=== PATIENT | female | born 1950 | race Caucasian/White ===

== ENCOUNTER 2016-11-25 20:43 | Outpatient (CLI) | payer MEDICARE, BC ==
[~2016-11-25] VITALS: Ht 170.2 cm; Wt 95.3 kg
--- NOTE | ~2016-11-25 | HEMODYNAMI ---
PATIENT:NATHANIEL MONCADA MEDICAL RECORD: [id number] : 50 LOCATION:[facility] D.2 ADMISSION DATE: 11/25/16 Generatedon:11/26/201610:15 Patient name: NATHANIEL MONCADA Patient #: [id number] SSN: D OB: 1950 Date of study: 11/26/2016 Page: Of Hemodynamic Procedure Report Patient Data Patient Demographics Procedure consent was obtained First Name: NATHANIEL Gender: Female Last Name: CORAL : 1950 Patient #: [id number] Age: 66 year(s) Race: Unknown Additional ID: [id number] Contact details [address]: [address] [place] [address] State: [place] City: [place] Zip code: [address] Admission Admission Data Admission Date: 11/25/2016 Admission Time: 20:43 Room #: D.2112 Procedure Procedure Types Cath Procedure Diagnostic Procedure [facility] w/Coronaries PCI Procedure Coronary Stent Initial Miscellaneous Procedures Moderate Sedation up to 15 minutes Procedure Description Procedure Date Procedure Date: 11/26/2016 Procedure Start Time: 10:00 Procedure End Time: 10:14 Procedure Staff Name Function Enrique Stephen MD Performing Physician Christian Baumann RT Scrub Hanna Beauchamp RN Nurse Chase Dempsey RT Monitor Procedure Data Cath Procedure Fluoroscopy Diagnostic fluoroscopy Total fluoroscopy Time: 3.2 time: 3.2 min min Diagnostic fluoroscopy Total fluoroscopy dose: 614 dose: 614 mGy mGy Contrast Material Contrast Material Type Amount (ml) Isovue 300 87 Entry Location Entry Primary Successful Side Size Upsize Upsize Entry Closure Bunch ccessful Closure Location (Fr) 1 (Fr) 2 (Fr) Remarks Device Remarks Radial Right 6 Fr Mechanical artery Short Compression Estimated blood loss: 10 ml Diagnostic catheters Device Type Used For End Catheter Placement Terumo 5Fr Crum Lynne 110cm Procedure catheter Procedure Complications No complications Procedure Medications Medication Administration Route Dosage Oxygen NC 2 l/min Heparin Flush Bag added to field 2 bags (1000units/500ml NS) Lidocaine 2% added to field 20 Radial Cocktail added to field 1 syringe (Verapomil 2mg/Nitro 400mcg/Heparin 1500units) Versed I.V. 1 mg Fentanyl I.V. 50 mcg Radial Cocktail I.A. 1 syringe (Verapomil 2mg/Nitro 400mcg/Heparin 1500units) Versed I.V. 1 mg Fentanyl I.V. 50 mcg Heparin Bolus I.V. 4000 units Versed I.V. 1 mg Fentanyl I.V. 50 mcg Versed I.V. 1 mg Plavix P.O. 75 mg Hemodynamics Rest Heart Rate: 65 (bpm) Pressure Samples Time Site Value (mmHg) Purpose Heart Use Rate(bpm) 10:01 LV 72/-31,-2 Snapshot 71 10:02 LV 103/43,38 Snapshot 71 Snapshots Pre Cath Intra NCS Post Cath Vital Signs Time Heart Resp SPO2 NIBP (mmHg) Rhythm Pain Sedation Rate (ipm) (%) Status Level (bpm) 9:23:45 68 20 100 156/85(133) NSR 0 (11) 10(A) , No pain 9:28:09 65 19 100 141/78(122) NSR 0 (11) 10(A) , No pain 9:32:34 59 16 96 144/76(103) NSR 0 (11) 10(A) , No pain 9:36:56 60 15 97 135/84(100) NSR 0 (11) 10(A) , No pain 9:41:18 61 16 95 129/75(108) NSR 0 (11) 10(A) , No pain 9:45:38 59 19 95 133/76(119) NSR 0 (11) 10(A) , No pain 9:49:58 62 16 95 151/82(125) NSR 0 (11) 10(A) , No pain 9:54:28 62 16 95 161/72(126) NSR 0 (11) 10(A) , No pain 9:58:51 60 16 95 139/74(113) NSR 0 (11) 10(A) , No pain 10:03:11 69 16 95 130/65(96) NSR 0 (11) 10(A) , No pain 10:07:29 68 16 95 135/68(100) NSR 0 (11) 10(A) , No pain 10:11:12 76 16 96 124/69(102) NSR 0 (11) 10(A) , No pain Medications Time Medication Route Dose Verified Delivered Reason Note s Effectiveness by by 9:25:39 Oxygen NC 2 l/min Enrique Hanna Per physician Zafar Beauchamp RN 9:25:47 Heparin Flush added 2 bags Enrique Nunez used for Bag to Zafar Stephen MD procedure (1000units/500ml field NS) 9:25:54 Lidocaine 2% added 20ml Enrique Enrique used for to vial Zafar Stephen MD procedure field 9:26:10 Radial Cocktail added 1 Enrique Enrique used for (Verapomil to syringe Zafar Stephen MD procedure 2mg/Nitro field 400mcg/Heparin 1500units) 9:58:50 Versed I.V. 1 mg Enrique Hanna for sedation Zafar Beauchamp RN 9:58:56 Fentanyl I.V. 50 mcg Enrique Hanna for sedation Zafar Beauchamp RN 10:00:10 Versed I.V. 1 mg Enrique Hanna for sedation Zafar Beauchamp RN 10:00:19 Fentanyl I.V. 50 mcg Enrique Hanna for sedation Zafar Beauchamp RN 10:01:09 Radial Cocktail I.A. 1 Enrique Enrique for (Verapomil syringe Zafar Stephen MD vasodilation 2mg/Nitro 400mcg/Heparin 1500units) 10:02:20 Versed I.V. 1 mg Enrique Hanna for sedation Zafar Beauchamp RN 10:02:24 Fentanyl I.V. 50 mcg Enrique Hanna for sedation Zafar Beauchamp RN 10:04:23 Heparin Bolus I.V. 4000 Enrique Hanna for dose units Zafar Beauchamp RN anticoagulation verified wtih dr stephen 10:04:32 Versed I.V. 1 mg Enrique Hanna for sedation Zafar Beauchamp RN 10:09:50 Plavix P.O. 75 mg Enrique Hanna for Zafar Beauchamp RN antiplatelet therapy Procedure Log Time Note 9:01:38 ACC Patient presents with Stable Angina CCS Anginal Class 2--Slight limitation of ordinary activity. 9:01:41 Diagnostic Cath status Elective 9:01:45 Chase Dempsey RT(R) sent for patient. Start room use. 9::46 Time tracking: Regular hours 9:01:55 Plan of Care:Hemodynamics will remain stable., Cardiac rhythm will remain stable., Comfort level will be maintained., Respiratory function will remain adequate., Patient/ family verbilizes understanding of procedure., Procedure tolerated without complication., Recovers from procedure without complications.. 9:19:36 Patient received from PCU to CCL 2 Alert and oriented. Tansferred to table in Supine position. 9:19:37 Warm blankets applied, and richard hugger turned on for patient comfort. 9::37 Correct patient and procedure confirmed by team. 9::38 Signed procedure consent form obtained from patient. 9::39 ECG and BP/O2 sat monitors applied to patient. 9:22:24 Vital chart was started 9:25:39 Oxygen 2 l/min NC was administered by Hanna Beauchamp RN; Per physician; 9:25:47 Heparin Flush Bag (1000units/500ml NS) 2 bags added to field was administered by Enrique Stephen MD; used for procedure; 9:25:54 Lidocaine 2% 20ml vial added to field was administered by Enrique Stephen MD; used for procedure; 9:26:10 Radial Cocktail (Verapomil 2mg/Nitro 400mcg/Heparin 1500units) 1 syringe added to field was administered by Enrique Stephen MD; used for procedure; 9:28:04 Baseline sample Acquired. 9:28:14 Rhythm: sinus rhythm 9:28:16 Full Disclosure recording started 9::37 H&P Date Dictated: 11/25/2016 Within 30 days and on chart., H&P Addendum completed by physician on day of procedure. (MUST COMPLETE FOR ALL OUTPATIENTS). 9:28:38 Pre-procedure instructions explained to patient. 9:28:39 Pre-op teaching completed and patient verbalized understanding. 9::40 Family in waiting room. 9::42 Patient NPO since Midnight. 9::46 Is the patient allergic to Iodine/contrast media? No. 9:29:05 Is patient on blood thinner?Yes 9:29:09 ACC The patient was administered the following blood thiners within the last 24 hours: ACCPlavix 9:29:12 Patient diabetic? No. 9:29:14 Patient not . Patient is over age 55. 9:29:17 Previous problem with sedation/anesthesia? No ? 9:29:20 Snore? Yes 9:29:21 Sleep apnea? No 9:29:22 Deviated septum? No 9:29:23 Opens mouth fully? Yes 9:29:24 Sticks out tongue? Yes 9:29:25 Airway obstruction? No ? 9:29:29 Dentures? No ? 9:29:32 Pre procedure: right dorsailis pedis pulse 1+ Palpable, but thready & weak; easily obliterated 9:29:35 Modified Anastacio's test Ulnar < 7 seconds 9:29:41 Patient pain scale 0/10 ?. 9:29:53 IV patent on arrival in left forearm with 0.9% NaCl at [facility]. 9:29:56 Lab results completed and on chart. 9:30:02 Right Radial & Right Groin area was prepped with chlora-prep and draped in sterile fashion 9:30:08 Alarms reviewed by R. N. 9:30:08 Sharps counted by scrub and verified by R.N. 9:39:06 Zero performed for pressure channel P1 9:39:09 Zero performed for pressure channel P1 9:39:11 Zero performed for pressure channel P1 9:58:08 --------ALL STOP TIME OUT------ 9:58:08 Final Timeout: patient, procedure, and site verified with staff and physician. All members of the team are in agreement. 9:58:11 Right Radial & Right Groin site verified by team. 9:58:14 Physical assessment completed. ASA score P 2 - A patient with mild systemic disease as per Enrique Stephen MD. 9:58:17 Sedation plan: IV Moderate Sedation Versed, Fentanyl 9:58:50 Versed 1 mg I.V. was administered by Hanna Beauchamp RN; for sedation; 9:58:56 Fentanyl 50 mcg I.V. was administered by Hanna Beauchamp RN; for sedation; 9:59:52 Use device set Radial Dx 9:59:54 Tegaderm 4 x 4 opened to sterile field. 9:59:55 Acist Hand Control opened to sterile field. 9:59:55 Acist Manifold opened to sterile field. 9:59:57 Acist Syringe opened to sterile field. 9:59:57 Medline Cath Pack opened to sterile field. 9:59:58 Bag Decanter opened to sterile field. 9:59:58 Terumo 6Fr Slender Glidesheath opened to sterile field. 9:59:58 St Geovany 260cm J .035 wire opened to sterile field. 9:59:59 MBrace Wrist Support opened to sterile field. 10:00:01 Procedure started. 10:00:08 Local anesthetic to right radial artery with Lidocaine 2% by Enrique Stephen MD.INITIAL ACCESS ONLY 10:00:10 Versed 1 mg I.V. was administered by Hanna Beauchamp RN; for sedation; 10:00:19 Fentanyl 50 mcg I.V. was administered by Hanna Beauchamp RN; for sedation; 10:00:31 A 6 Fr Short sheath was inserted into the Right Radial artery 10:01:09 Radial Cocktail (Verapomil 2mg/Nitro 400mcg/Heparin 1500units) 1 syringe I.A. was administered by Enrique Stephen MD; for vasodilation; 10:01:11 A Terumo 5Fr Crum Lynne 110cm catheter was advanced over the wire and used for Procedure. 10:01:58 LV angiography performed. 10:01:59 LV gram done using CRUZ 10:02:04 EF : 60 % 10:02:14 Injector settings: Ml/sec: 7, Volume: 15, 10:02:20 Versed 1 mg I.V. was administered by Hanna Beauchamp RN; for sedation; 10:02:24 Fentanyl 50 mcg I.V. was administered by Hanna Beauchamp RN; for sedation; 10:02:24 LCA angiography performed. 10:02:35 Merit BasixCompak Inflation Kit opened to sterile field. 10:02:35 Zhong Whisper J 300cm 0.014 guide wire opened to sterile field. 10:03:28 RCA angiography performed. 10:03:36 Cordis 6FR XBLAD 3.5 guide catheter opened to sterile field. 10:03:40 Catheter exchanged over wire. 10:04:23 Heparin Bolus 4000 units I.V. was administered by Hanna Beauchamp RN; for anticoagulation; dose verified wtih dr stephen 10:04:32 Versed 1 mg I.V. was administered by Hanna Beauchamp RN; for sedation; 10:04:48 6 Fr XBLAD 3.5 guide catheter was inserted over the wire 10:04:54 ACC PCI Site: mLAD has 80% stenosis. 10:04:56 ACC Pre-intervention CHERYL Flow is 3. 10:06:30 Guide Catheter removed. unable to cannulate vessel. 10:06:44 Medtronic Launcher 6Fr EBU 3.0 guide catheter opened to sterile field. 10:06:59 6 Fr EBU 3 guide catheter was inserted over the wire 10:07:38 Whisper wire advanced. 10:07:46 Terumo TR Band Standard opened to sterile field. 10:08:11 Wire advanced across lesion. 10:08:36 Inflation Number: 1 A Hoolux Medicaltronic Integrity 2.5 x 14 stent was prepped and advanced across the Mid LAD. The stent was deployed at 11 SAMANTHA for 0:10 (min:sec). 10:08:58 ACC Post-intervention CHERYL Flow is 3. 10:08:59 Stent catheter was removed intact over wire. 10:08:59 Wire removed. 10:09:00 Guide catheter removed. 10:09:16 Sheath removed intact; hemostasis achieved with Mechanical Compression to the Right Radial artery. 10:09:19 Procedure ended.(Physican Out) 10:09:27 Fluoroscopy time 03.20 minutes. 10:09:33 Fluoroscopy dose: 614 mGy 10:09:33 Flurop Dose total: 614 10:09:47 Contrast amount:Isovue 300 87ml. 10:09:50 Plavix 75 mg P.O. was administered by Hanna Beauchamp RN; for antiplatelet therapy; 10:09:51 Sharps counted by scrub and verified by R.N. 10:09:53 TR band inflated with 10cc of air. 10:09:55 Insertion/operative site no bleeding no hematoma. 10:09:57 Post Procedure Pulses reassessed and unchanged 10:09:59 Post-procedure physical assessment completed. ASA score P 2 - A patient with mild systemic disease as per Enrique Stephen MD. 10:10:01 Post procedure rhythm: unchanged. 10:10:04 Estimated blood loss: 10 ml 10:10:05 Post procedure instruction explained to patient.Patient verbalizes understanding. 10:10:06 Patient needs reinforcement of post procedure teaching. 10:10:18 Procedure type changed to Cath procedure, Diagnostic procedure, LHC, LHC w/Coronaries, PCI procedure, Coronary Stent Initial, Miscellaneous Procedures, Moderate Sedation up to 15 minutes 10:10:20 Procedure and supply charges have been captured, reviewed, submitted and are correct. 10:10:23 Procedure Complication : No complications 10:14:23 Vital chart was stopped 10:14:23 See physician's report for complete and final results. 10:14:25 Report given to PCU. 10:14:28 Patient transfered to PCU with Bed. 10:14:29 Procedure ended. 10:14:29 Full Disclosure recording stopped 10:14:36 End room use (Document Last) Intervention Summary Intervention Notes Time ActionType Lesion and Equipment Action# Pressure Duration Attributes Used 10:08:36 Place stent Mid LAD Medtronic 1 11 00:10 Integrity 2.5 x 14 stent Device Usage Item Name Manufacture Quantity Catalog Hospital Part Current Minimal Lot# / Number Charge Number Stock Stock Serial# Code [facility] 4 1 [id number] 5 x 4 Acist Hand Acist 1 99782 240641 709546 607850 5 Control Medical Systems Inc Acist Acist 1 68848 202728 210203 180779 5 Manifold Medical Systems Inc Acist Acist 1 59487 791531 019796 518380 20 Syringe Medical Systems Inc Medline Cardinal 1 [id number] 550911 76449 006460 5 Cath Pack Health Bag Microtek 1 2001S 128820 99538 239344 5 DecSounday [employer] Inc. Terumo 6Fr Terumo 1 [id number] 739339 856221 061545 [address] Geovany 1 486511 290428 410090 158758 30 260cm J .035 wire MBrace Advanced 1 140-0250-00 438664 12118 403066 5 Wrist Vascular Support Dynamics Terumo 5Fr Terumo 1 40-5627 847493 365565 951871 5 Crum Lynne 110cm catheter Merit Merit 1 [id number] 869809 774515 199849 15 Onlineprinters Medical Inflation Kit Zhong Zhong 1 [id number] 923607 197770 604386 5 Whisper J Vascular 300cm 0.014 guide wire Cordis 6FR Cardinal 1 [id number] 103080 886975 824664 10 XBLAD 3.5 Health guide catheter Medtronic Medtronic 1 [id number] 993422 90215 673597 0 Launcher 6Fr EBU 3.0 guide catheter Terumo TR Terumo 1 [id number] 918799 410529 058604 40 Band Standard Medtronic Medtronic 1 [id number] 771908 110028 2 [id number] Integrity 2.5 x 14 stent Signature Audit [place] Stage Time Signature Unsigned Intra-Procedure 11/26/2016 Christian Baumann 10:14:57 AM RT(R) Signatures Monitor : Chase Dempsey RT Signature : Date : Time : [id number] [place] [address]
[2016-11-25 15:49] LABS: BASOPHILS 0.2 % (0-2); EOSINOPHILS 1.3 % (0-7); HEMATOCRIT 41.6 % (36.0-48.0); HEMOGLOBIN 14.3 g/dL (12-16); IMMATURE GRANULOCYTES 0.2 % (0-5); LYMPHOCYTES 27.1 % (15-50); MCH 30.5 pg (26.0-34.0); MCHC 34.4 g/dL (31.0-37.0); MCV 88.7 fL (80.0-100.0); MEAN PLATELET VOLUME 11.3 fL (7.4-10.4); MONOCYTES 9.5 % (2-11); NEUTROPHILS 61.7 % (40-80); PLATELET COUNT 166 10x3/uL (130-400); RBC 4.69 10x6/uL (4.00-5.40); RDW 12.8 % (11.5-14.5); WBC 5.4 10x3/uL (4.8-10.8)
[2016-11-25 16:08] LABS: ALKALINE PHOSPHATASE 90 U/L (46-116); ALT (SGPT) 50 U/L (10-68); BILIRUBIN - TOTAL 0.27 mg/dL (0.2-1.3); CALC OSMOLALITY 278 mosm/kg (275-300); CALCIUM 9.4 mg/dL (8.5-10.1); CARBON DIOXIDE 30.2 mmol/L (21.0-32.0); CHLORIDE - SERUM 101 mmol/L (98-107); CREATININE - SERUM 0.9 mg/dL (0.6-1.3); GLUCOSE 107 mg/dL (74-106); PROTEIN - SERUM 7.5 g/dL (6.4-8.2); SODIUM 138 mmol/L (136-145); UREA NITROGEN 22 mg/dL (7-18); eGFR NON AFRICAN AMERICAN 66 mL/min (90-120)
[2016-11-25 16:12] LABS: CREATINE KINASE 83 UL (21-215)
[2016-11-25 16:24] LABS: TROPONIN-I < 0.017 ng/mL (0.000-0.060)
[2016-11-25 20:00] VITALS: BP 142/74
[2016-11-25] MEDS ORDERED: LISINOPRIL-HCTZ1 T13 PO (20:44)
[2016-11-25] MEDS ORDERED: LEVOTHYROXINE50 MCG PO (20:44)
[2016-11-25] MEDS ORDERED: ZOCOR40 MG PO (20:45)
[2016-11-25] MEDS ORDERED: BAYER CHEWABLE81 MG PO (20:47)
--- NOTE | 2016-11-25 20:50 | NUR ---
REC FROM ER VIA WC. ALERT/ORIENTED X 4. AMBULATED TO BED WITH STEADY GAIT. DENIES PAIN. IV IN LEFT HAND INTACT SL. ORIENTED TO ROOM AND CALL LIGHT.
--- NOTE | 2016-11-25 21:30 | NUR ---
SIGNED CONSENT FOR [employer] TOMORROW WITH DR PLAZA.
[2016-11-25 22:42] VITALS: BP 142/74; BMI 32.9
[2016-11-26] VITALS: BP 138/64
--- NOTE | 2016-11-26 02:17 | NUR ---
RESTING WITH EYES CLOSED. RR 18 EVEN U/L. NO S/S OF PAIN OR DISCOMFORT. BED IS LOW WITH SR UP X2. CALL LIGHT IN REACH.
[2016-11-26 04:00] VITALS: BP 139/63
[2016-11-26 08:10] VITALS: BP 136/82
--- NOTE | 2016-11-26 08:59 | NUR ---
CATH CALLED TO PRE-OP PT. PRE-OP MEDS GIVEN AND TEACHING PROVIDED. ASSISTED PT INTO BED AND SHE IS AWAITING CATH TEAM. NO FURTHER NEEDS AT THIS TIME. WILL CPOC.
--- NOTE | 2016-11-26 09:09 | NUR ---
CATH TEAM IN ROOM AND READY TO TAKE PATIENT. NO FURTHER NEEDS.
--- NOTE | 2016-11-26 10:13 | HP ---
PATIENT: NATHANIEL MONCADA MEDICAL RECORD: [id number] ACCOUNT: [id number] LOCATION:[address] : 50 ADMISSION DATE: 11/25/16 HISTORY AND PHYSICAL EXAMINATION ADMITTING DIAGNOSES: 1. Chest pain compatible with angina. 2. Abnormal nuclear stress test. 3. Hypertension. 4. Hyperlipidemia. 5. Family history of coronary artery disease. HISTORY OF PRESENT ILLNESS: Mrs. Moncada has been having increasing episodes of chest pain or chest discomfort. This actually started in April. She underwent stress testing, this was mildly abnormal. She was treated medically. She did well for a number of months; however, the past week, she has had multiple episodes of chest discomfort with any minimal exertion, even vacuuming brings on profuse diaphoresis and chest discomfort. It is a classic, dull, aching fullness in the anterior chest. Her EKG is with no acute changes. Troponin is normal. PHYSICAL EXAMINATION: GENERAL APPEARANCE: Well-nourished, well-developed, appears stated age. Level of distress, comfortable. PSYCHIATRIC: Mental status, alert, normal affect. Orientation, oriented to time, place and person. EYES: Lids and conjunctiva, noninjected. No discharge, no pallor. ENT: Lips, teeth, gums, normal dentition. Oropharynx, no cyanosis, no pallor. NECK: Carotid arteries, bilateral normal upstroke, no bruits, no thrills. JUGULAR VEINS: No jugular venous pressure or distention. CERVICAL LYMPH NODES: Nontender, nonenlarged. THYROID: Not enlarged. Nontender. No nodules. LUNGS: Respiratory effort, unlabored. CHEST: Normal curvature. No thoracic deformity. No chest wall tenderness. Percussion, resonant. Auscultation, clear. No wheezes, no rales, no rhonchi. CARDIOVASCULAR: Precordial exam, nondisplaced. No heaves or pericardial thrills. Rate and rhythm, regular. Heart sounds, normal S1, normal S2. No S3, no gallop, no rub. Systolic murmur, not heard. Diastolic murmur, not heard. EXTREMITIES: No cyanosis, no edema. Peripheral pulses, full and equal in all extremities, except as noted. No bruits appreciated. ABDOMEN: Soft, nondistended. Normal aorta. No bruit. Nontender. No masses. Liver, nontender, no hepatomegaly. Spleen, nontender, no splenomegaly. MUSCULOSKELETAL: No joint tenderness. No joint swelling. No erythema. NEUROLOGICAL: Normal gait, normal strength, normal tone. SKIN: Warm and dry. OVERALL IMPRESSION: Chest pain compatible with angina in markedly escalating fashion. Most likely, she has hemodynamically significant coronary artery disease. We will proceed with coronary angiography. Further care depends upon findings of the angiography. TRANSINT:[id number] Voice Confirmation ID: [id number] DOCUMENT ID: [id number] HISTORY AND PHYSICAL [id number] NATHANIEL MONCADA JEFFREY MD at 1013 CC: [id number] DICTATION DATE: 11/25/16 1711 TIPPLE OPERATOR: 11/25/16 1811 ADM IN [id number] [place] [address]
--- NOTE | 2016-11-26 10:47 | NUR ---
PT BACK FROM MANAGER HIV AWAKE AND ALERT. VSS AND BEING MONITERED Q15MIN PER POST PROCEDURE PROTOCOL. INITIATED IV FLUIDS @100ML/HR VIA L.HAND PIV ACCESS. TR BAND IN PLACE TO R.WRIST WITH 9CC OF AIR. CDI NO S/S OF BLEEDING OR HEMATOMA NOTED. PERIPHERAL PULSES INTACT. TEACHING PROVIDED AND UPDATE GIVEN ABOUT PROCEDURE AND WHAT WAS DONE. PT VERBALIZED UNDERSTANDING AND IS RESTING QUIETLY IN BED, DENIES ANY CURRENT PAIN OR NEEDS. WILL CTM.
[2016-11-26 11:06] VITALS: Ht 170.2 cm; Wt 95.3 kg
[2016-11-26] MEDS ORDERED: PLAVIX75 MG PO (11:16)
[2016-11-26] MEDS ORDERED: CIPRO500 MG PO (11:16)
--- NOTE | 2016-11-26 12:19 | NUR ---
ASSISTED PT TO BR. SHE VOIDED WITHOUT ANY DIFFICULTIES. R.WRIST TR BAND STILL IN PLACE AND NO S/S OF BLEEDING NOTED. PT SITTING UP IN BED EATING LUNCH. PERIPHERAL PULSES INTACT, VSS, DENIES ANY PAIN OR CURRENT NEEDS AT THIS TIME. WILL CPOC.
--- NOTE | 2016-11-26 13:26 | NUR ---
REMOVED HALF OF AIR FROM PTS R.WRIST TR BAND. PT STARTED WITH 9CC, REMOVED 4CC AND NO BLEEDING OCCURED. WILL REMOVED HALF MORE PER PROTOCOL IN 30 MINS AND CTM.
--- NOTE | 2016-11-26 13:44 | NUR ---
DISCHARGE TEACHING PROVIDED AND PAPERS SIGNED. PT DENIES ANY QUESTIONS OR CONCERNS AND WAS GIVEN SCRIPTS FOR THE TWO NEW MEDICATIONS. PT STILL HAS R.WRIST TR BAND IN PLACE AND HAS NO S/S OF BLEEDING OR HEMATOMA. WILL WAIT UNTIL TIME IS COMPLETELY UP BEFORE LEAVING UNIT. DENIES ANY FURTHER NEEDS OR QUESTIONS AT THIS TIME. WILL CTM.
--- NOTE | 2016-11-26 14:43 | NUR ---
RELEASED LAST HALF OF AIR AND INCISION STARTED OOZING. PLACE 8CC OF AIR BACK IN. WILL CONTINUE TO MONITOR.
--- NOTE | 2016-11-26 15:17 | NUR ---
RELEASED 8CC OF AIR FROM THE TR BAND. PLACED 2X2 AND OPSITE DRESSING. WILL CONTINUE TO MONITOR.
--- NOTE | 2016-11-26 16:13 | NUR ---
PT D/C HOME WITH . IV IN LEFT HAND D/C. CATH TIP INTACT. PT TOLERATED WELL. PT LEFT FLOOR VIA WHEELCHAIR BY HOSPITAL STAFF. WILL.D/C
--- NOTE | 2016-11-28 16:36 | DS ---
PATIENT:NATHANIEL MONCADA :50 MEDICAL RECORD: [id number] DISCHARGE SUMMARY ADMISSION DATE: 11/25/16 DISCHARGE DATE: 11/26/16 DISCHARGE DIAGNOSES: 1. Angina. 2. Coronary artery disease. 3. Hypertension. 4. Hyperlipidemia. HOSPITAL COURSE: Mrs. Moncada presents with anginal symptomatology, found to have significant disease of the LAD, underwent successful PTCA stent of the LAD, had an uneventful postop course. She was discharged home with the addition of aspirin and Plavix to her medical regimen. Will follow up with [facility] in 1 month. TRANSINT:[id number] Voice Confirmation ID: [id number] DOCUMENT ID: [id number] RAMOS PLAZA MD at 1636 CC: [id number] DICTATION DATE: 11/26/16 1016 PROCESS CONTROL SUPERVISOR: 11/27/16 0514 DEP CLI 11/26/16 [id number] [place] [address]
--- NOTE | 2016-11-28 16:36 | OP ---
PATIENT NAME: NATHANIEL MONCADA MEDICAL RECORD: [id number] :50 LOCATION:[facility] ADMISSION DATE: SURGEON: RAMOS PLAZA MD DATE OF OPERATION: 11/26/2016 PROCEDURES: 1. PTCA stent LAD. 2. Left heart catheterization. 3. Selective coronary angiography. 4. Left ventriculogram. INDICATION: Angina and coronary artery disease. PROCEDURE: After informed consent was obtained and after detailed explanation of risks, benefits, as well as alternative therapies, the patient elected to proceed with angiogram and angioplasty. The right radial area was prepped and draped in normal sterile fashion. Right radial artery was cannulated via modified Seldinger technique with placement of 6-Slovak sheath. All catheters exchanged through this sheath. FINDINGS: The left ventriculogram was performed in the standard 30-degree CRUZ view reveals good cardiac wall motion throughout all segments. Overall ejection fraction is 60%. SELECTIVE CORONARY ANGIOGRAPHY: 1. Left main showed no significant angiographic disease. 2. Left anterior descending has 80% stenosis that is hazy in the mid vessel. 3. Left circumflex has moderate irregularities, but no flow-limiting stenosis. 4. Right coronary has moderate irregularities, but no flow-limiting stenosis. PTCA STENT OF THE LAD: The stent used was a 2.5 x 14 mm Integrity. Result was 0% residual stenosis. OVERALL IMPRESSION: Successful percutaneous transluminal coronary angioplasty stent of the left anterior descending going from 80% initial stenosis to 0% residual. TRANSINT:[id number] Voice Confirmation ID: [id number] DOCUMENT ID: [id number] RAMOS PLAZA MD at 1636 CC: [id number] DICTATION DATE: 11/26/16 1015 TONG HOOKER: 11/26/16 1800 DEP CLI 11/26/16 [place] [address]
== END 2016-11-26 16:15 | disposition home or self-care (01) ==
LOC: OBSVTIME → D.OPS 20:43 → D.ER 20:43 → OBSVTIME 20:43 → D.M2 20:43 → EDSTATUS 11-26 07:42 → D.OPS 11-26 16:15 → D.M2 11-26 16:15
PROVIDERS: Emergency Medicine
DX: I25.119 Atherosclerotic heart disease of native coronary artery with unspecified angina pectoris (principal); R94.39 Abnormal result of other cardiovascular function study; I10 Essential (primary) hypertension; E78.5 Hyperlipidemia, unspecified; Z82.49 Family history of ischemic heart disease and other diseases of the circulatory system; Z01.812 Encounter for preprocedural laboratory examination

== ENCOUNTER → 2017-03-10 17:03 | Outpatient (CLI) | payer MEDICARE, BC ==
[2016-11-26 11:06] VITALS: BMI 32.9
[~2017-03-10 17:03] MED LIST: BAYER CHEWABLE81 MG PO; CIPRO500 MG PO; LEVOTHYROXINE50 MCG PO; LISINOPRIL-HCTZ1 T13 PO; PLAVIX75 MG PO; ZOCOR40 MG PO
== END | disposition home or self-care (01) ==
LOC: D.MAMMO 13:45
DX: Z12.31 Encounter for screening mammogram for malignant neoplasm of breast (principal)

== ENCOUNTER 2018-05-10 19:00 | Outpatient (CLI) | payer MEDICARE, BC ==
[2016-11-26 11:06] VITALS: BMI 32.9
== END 2018-05-10 23:59 | disposition home or self-care (01) ==
LOC: D.MAMMO 19:00
DX: Z12.31 Encounter for screening mammogram for malignant neoplasm of breast (principal)

== ENCOUNTER 2019-05-11 09:00 | Outpatient (CLI) | payer MEDICARE, BC ==
[2016-11-26 11:06] VITALS: BMI 32.9
== END 2019-05-11 10:00 | disposition home or self-care (01) ==
LOC: D.MAMMO 09:00
PROVIDERS: ATTEND Family Medicine
DX: Z12.31 Encounter for screening mammogram for malignant neoplasm of breast (principal)

== ENCOUNTER 2019-07-01 02:15 | Observation (INO) | payer MEDICARE, BC ==
[~2019-07-01] VITALS: Ht 170.2 cm; Wt 99.1 kg
--- NOTE | ~2019-07-01 | EC ---
PATIENT:NATHANIEL MONCADA DATE OF SERVICE: 07/01/19 SEX: F MEDICAL RECORD: [id number] DATE OF : 50 LOCATION:D.M2 D.211 AGE OF PATIENT: 69 ADMISSION DATE: 07/01/19 REFERRING PHYSICIAN: INTERPRETING PHYSICIAN: RAMOS PLAZA MD ECHOCARDIOGRAM REPORT ECHO CHARGES 4 ECHO COMPLETE Date: 07/01/19 CLINICAL DIAGNOSIS: AFIB ECHOCARDIOGRAPHIC MEASUREMENTS (adult normal given) AC root (d.<3.7cm) 2.5 cm LV Septum d (<1.2 cm> 1.1 cm Valve Excursion 1.7 cm LV Septum (systole) 1.2 cm Left Atria (s.<4.0cm> 3.8 cm LVPW d(<1.2cm) 1.2 cm RV (d.<2.3cm) 3.5 cm LVPW (sytole) 1.3 cm LV diastole(<5.6CM) 5.0 cm MV E-F(>70mm/sec) cm LV systole 4.0 cm LVOT Diameter 2.1 cm MV exc.(>10mm) cm Est.ejection fraction (50-75%) % DOPPLER: LVIT cm/sec A 43 cm/sec E 55 cm/sec LA cm/sec RVSP 26.6 mmHg LVOT 89 cm/sec AOP1/2T m/s Asc. Ao 128 cm/sec RVOT 68 cm/sec RA cm/sec PA 100 cm/sec AV Gradient Peak 6.5 mmHg AV Mean 3.9 mmHg AV Area 2.5 cm MV Gradient Peak 4.0 mmHg MV Mean 1.2 mmHg MV Area cm COMMENTS: Biophysics Professor: Jessica CHILDRESS Electronic Communications Technician: 2 Dr. Gonzalez TAPE# PACS Pericardial Effusion N DATE OF SERVICE: ECHOCARDIOGRAM FINDINGS: 1. Left ventricular chamber size is within normal limits. Left ventricular systolic function is normal. Overall ejection fraction estimated at 55%. 2. Left atrium, right atrium, right ventricular chamber sizes are within normal limits. 3. Valvular structures have normal structure and motion. ECHOCARDIOGRAM REPORT [id number] NATHANIEL MONCADA 4. Doppler interrogation reveals mild aortic insufficiency, mild mitral regurgitation, no other valvular insufficiency or stenosis. Pulmonary systolic pressure is estimated at 26 mmHg. 5. No evidence of pericardial effusion or left ventricular thrombus. TRANSINT:[id number] Voice Confirmation ID: [id number] DOCUMENT ID: [id number] RAMOS PLAZA MD CC: [id number] DICTATION DATE: 07/01/19 1147 MAGAZINE GRINDER LOADER: 07/01/19 1322 ADM IN [place] [id number] [place] [address]
--- NOTE | ~2019-07-01 | CN ---
PATIENT NAME:NATHANIEL CHAVEZ MEDICAL RECORD: [id number] : 50 LOCATION:D. D.2116 ADMIT DATE: 07/01/19 ACCOUNT: [id number] CONSULTING PHYSICIAN: RAMOS PLAZA MD REFERRING PHYSICIAN: SHAHIDA DOMINGO MD DATE OF CONSULTATION: 07/01/2019 ADMITTING DIAGNOSES: 1. Paroxysmal atrial fibrillation. 2. Hypertension. 3. Hyperlipidemia. HISTORY OF PRESENT ILLNESS: Mrs. Chavez has a history of paroxysmal atrial fibrillation dating back 15 years of his first episode. She has not been on any pharmacotherapy for atrial fibrillation. It has been 10 years since she has had an episode. She had palpitations and racing irregular heart yesterday like her previous atrial fibrillation symptoms. No chest pain, shortness of breath, just a sensation of palpitations. By the time she got to the Emergency Room, this had returned to sinus rhythm. She has not had any further atrial fibrillation. She is on lisinopril for blood pressure, but she is not on any AV blocking medications as it has been 10 years. She remembers that she was given a prescription for a pill in the pocket treatment of the atrial fibrillation, but she has since thrown that medication away. Her troponin is normal. EKG is with no ST-T changes. PHYSICAL EXAMINATION: CONSTITUTIONAL/GENERAL APPEARANCE: Well nourished, well developed, appears stated age. EYES: Lids and conjunctivae noninjected. No discharge. No pallor. ENT: Lips within normal limit. No cyanosis. No pallor. NECK: Carotid arteries, bilateral normal upstroke. No bruits. No thrills. No jugular venous pressure or distention. CERVICAL LYMPH NODES: Nontender. Nonenlarged. THYROID: Not enlarged. No nodules. CARDIOVASCULAR: Precordial exam, nondisplaced. No heaves or pericardial thrills. Rate and rhythm, regular. Heart sounds, normal S1, normal S2. No S3, no gallop, no rub. Systolic murmur, not heard. Diastolic murmur, not heard. RESPIRATORY: Respiratory effort, unlabored. Normal curvature. No thoracic deformity. No chest wall tenderness. Percussion, resonant. Auscultation, clear. No wheezes, no rales, no rhonchi. ABDOMEN: Soft, nondistended, nontender. No abdominal pain, no vomiting and normal appetite. MUSCULOSKELETAL: No joint tenderness, normal gait, normal tone. SKIN: Warm and dry. OVERALL IMPRESSION: Paroxysmal atrial fibrillation. At this time, we will give her propafenone to take on a p.r.n. basis. If she continues to have episodes of atrial fibrillation, we will change her lisinopril to the diltiazem or beta dinesh. TRANSINT:[id number] Voice Confirmation ID: [id number] DOCUMENT ID: [id number] CONSULT REPORT [id number] NATHANIEL CHAVEZ JEFFREY MD CC: [id number] DICTATION DATE: 07/01/19820 WAFER PRODUCTION LEAD WORKER: 07/01/19849 ADM IN [facility] [address] [place] [id number]
[2019-07-01 02:57] LABS: BASOPHILS 0.2 % (0-2); EOSINOPHILS 2.7 % (0-7); HEMATOCRIT 40.5 % (36.0-48.0); HEMOGLOBIN 14.1 g/dL (12-16); LYMPHOCYTES 25.3 % (15-50); MCH 29.6 pg (26.0-34.0); MCHC 34.8 g/dL (31.0-37.0); MCV 85.1 fL (80.0-100.0); MONOCYTES 8.4 % (2-11); NEUTROPHILS 63.4 % (40-80); PLATELET COUNT 147 10x3/uL (130-400); RBC 4.76 10x6/uL (4.00-5.40); RDW 12.4 % (11.5-14.5); WBC 4.5 10x3/uL (4.8-10.8)
[2019-07-01 03:11] LABS: CALC OSMOLALITY 277 mosm/kg (275-300); CALCIUM 9.3 mg/dL (8.5-10.1); CARBON DIOXIDE 27.9 mmol/L (21.0-32.0); CHLORIDE - SERUM 101 mmol/L (98-107); CREATININE - SERUM 0.9 mg/dL (0.6-1.3); GLUCOSE 122 mg/dL (74-106); POTASSIUM - SERUM 3.9 mmol/L (3.5-5.1); SODIUM 137 mmol/L (136-145); UREA NITROGEN 20 mg/dL (7-18); eGFR NON AFRICAN AMERICAN 66 mL/min (90-120)
[2019-07-01 03:27] LABS: ALBUMIN 3.7 g/dL (3.4-5.0); ALKALINE PHOSPHATASE 90 U/L (46-116); ALT (SGPT) 42 U/L (10-68); BILIRUBIN - TOTAL 0.32 mg/dL (0.2-1.3); CKMB 0.7 U/L (0.0-3.6); CREATINE KINASE 85 UL (21-215); MAGNESIUM - SERUM 2.2 mg/dL (1.8-2.4); PROTEIN - SERUM 7.2 g/dL (6.4-8.2); THYROID STIMULATING HORMONE 0.03 uIU/mL (0.36-3.74)
[2019-07-01 03:28] LABS: TROPONIN-I < 0.017 ng/mL (0.000-0.060)
[2019-07-01 04:20] LABS: T4 THYROXIN - FREE 1.26 ng/dL (0.76-1.46)
[2019-07-01 05:37] VITALS: BP 149/70; BMI 34.2
[2019-07-01 08:19] VITALS: Ht 170.2 cm; Wt 99.1 kg
[2019-07-01 09:30] VITALS: BP 139/73
[2019-07-01] MEDS ORDERED: PROPAFENONE HC225 MG PO (13:16)
--- NOTE | 2019-07-01 13:30 | NUR ---
PROPAFENONE 225 MG #20 PRN NO REFILLS CALED TO [facility] 7 PER PATIENT REQUEST.
--- NOTE | 2019-07-01 14:04 | NUR ---
IV AND TELEMETRY DCD. DC PLANS GIVEN. UNDERSTANDING VOICED.
== END 2019-07-01 14:05 | disposition home or self-care (01) ==
LOC: D.ER 02:15 → D.M2 04:13 → OBSVTIME 04:13 → D.M2 14:05
PROVIDERS: Family Medicine; ADMIT Family Medicine; ATTEND Family Medicine
DX: R00.2 Palpitations (principal); I48.0 Paroxysmal atrial fibrillation; I10 Essential (primary) hypertension; E78.5 Hyperlipidemia, unspecified; E03.9 Hypothyroidism, unspecified; M19.90 Unspecified osteoarthritis, unspecified site